=== PATIENT | female | born 1960 | race Caucasian/White ===

== ENCOUNTER 2017-02-07 09:13 | Outpatient (CLI) | payer OTHER ==
[~2017-02-07] VITALS: Ht 153.7 cm; Wt 63.9 kg
[2017-02-07 09:30] VITALS: BP 185/87; PULSE 61; RESP 16; Ht 153.7 cm; Wt 63.9 kg
[2017-02-07] MEDS ORDERED: ELBA1TAB PO (09:47)
[2017-02-07] MEDS ORDERED: PROP10TA6 PO (09:47)
[2017-02-07] MEDS ORDERED: SPIR25TA PO (09:47)
--- NOTE | 2017-02-07 11:35 | CONS ---
DATE OF CONSULTATION: 02/07/[facility] INITIAL OUTPATIENT CONSULTATION NOTE PLACE OF SERVICE: [facility] at [facility]. REFERRING PHYSICIAN: Loki Mae MD. Dear Dr. Mae: Thank you very much for the opportunity to participate in the care of this very pleasant lady and her wonderful family. REASON FOR CONSULTATION: Possible liver mass in the setting of cirrhosis. HISTORY OF PRESENT ILLNESS: The patient is a very pleasant 56-year-old lady with a few comorbidities as listed below, whom we were kindly asked to consult regarding management of possible liver mass. Patient was diagnosed with hepatitis C around summer when she initially developed edema and reported petechiae in the lower extremities. She was seen at the emergency department at [facility] and after several evaluations she was told that she had cirrhosis. An ultrasound done on 10/13/2015 demonstrated liver cirrhosis and a 13 cm spleen. In 01/2016 the patient's total bilirubin was 1.8, alkaline phosphatase 208, AST 207 and ALT 162, albumin 3.5 and INR was 1.1. She was therefore seen by you and has been under your excellent care since then. She has had a number of images done including an ultrasound of the liver around 07/2016 that showed an echogenic 1.8 cm lesion in the left hepatic lobe, not appreciated on prior CT scan done 01/17/2016. Spleen was read at 10.4 and there was no evidence of ascites. A CT scan with and without contrast was done on 08/08/2016 that demonstrated again cirrhotic changes of the liver, but no hepatic lesions. The spleen was measured at 12.6 on this study and there was evidence for portal hypertension manifested by varices. Interestingly , her alpha fetoprotein levels have changed over time. On 03/28/2016 alpha fetoprotein was 34.8. Subsequent to this, the following values where listed: 05/25/2016 at 53.4, 07/18/2016 at 44.6, 08/29/2016 at 43.5, 11/17/2016 at 23.3 and 12/15/2016 alpha fetoprotein was 12.2. The patient was worried about her clinical picture and she also had mentioned left-sided pain when she lays flat on her back. She was therefore referred to us for further evaluation. During her visit, the patient did not complain of any other major pains including no left-sided pain. Her only complaint was of occasional right-sided flank pain with some radiation to her back, which only happens infrequently. She also had 1 episode of blood in the stool over the last number of years and no other more common issues with bleeding. Her complete 14-point review of systems showed having to get up once at night to pee and occasional chest pains, occasional cough and phlegm. Some issues with gassiness and bloating and constipation and history of hemorrhoids, also difficulty with learning, which has been chronic. Otherwise, the rest of her review of systems were negative for any pertinent positives or pertinent negatives. No other major complaints during my visit. COMORBIDITIES: 1. History of cirrhosis diagnosed summer and being carefully followed with above-mentioned changes in her alpha fetoprotein levels and image findings that were discussed above. 2. Complication of cirrhosis including portal hypertension with platelet counts in the 60,000 to 70,000 range. 3. Hepatitis C infection, genotype 1A (05/25/2016). On 07/18/2016 HCV RNA was 1.7 million. The patient was started on 12 weeks of the Zepatier on 10/20/2016 and did not miss a dose. She finished this course. 4. Elevated alpha fetoprotein with resolution as mentioned above. 5. Hepatitis A immune. 6. Hypertension. 7. Cholelithiasis. Note that the patient had gallbladder wall thickening on her images from 07/2016, but no other visits to the hospital regarding this issue. 8. Gallbladder polyp: Small gallbladder polyp noted by ultrasound on 2016. 9. Hiatal hernia, CT scan 08/08/2016 and asymptomatic otherwise. 10. Hematuria. 11. Cyst of left kidney which appears to be stable and benign on ultrasound . 12. Renal calculi. 13. Hemorrhoids seen on colonoscopy 08/22/2016, thought to be internal and external. 14. Back pain, chronic and mainly when she does chores at home. 15. History of transfusion x1 in 1979. 16. Cystoscopy with bladder biopsy in 1986 in [place]. 17. Left breast mass removal 2005 at [facility] (further details are missing). 18. Right inguinal hernia repair in 2000 at [facility]. 19. BMI 27.0 from [facility] 02/07/2017. ALLERGIES: NO KNOWN DRUG ALLERGIES. MEDICATIONS: Carefully recorded in the electronic health record system and reviewed. SOCIAL HISTORY: The patient was born in [place] and she is currently . She has 7 living children. Currently is not employed. She does not report any smoking, drinking or intravenous drug use. REVIEW OF SYSTEMS: Other than the above-mentioned, there are no other pertinent positives or pertinent negatives in a complete 14-point review of systems. FAMILY HISTORY: History of CVA in patient's mother. History of hepatitis C virus infection in patient's sister. No other major medical, surgical or oncologic problems reported in the family. PHYSICAL EXAMINATION: GENERAL: The patient appears to be a very pleasant lady of descent, appearing stated age, sitting in a chair comfortably and in no acute distress. VITAL SIGNS: Appear to be normal with the exception of blood pressure 185/87. HEENT: Her head is normocephalic and atraumatic. Her extraocular muscles and hearing are grossly intact bilaterally and symmetrically. Her sclerae are nonicteric. Her oral cavity appears to be clear and her oral mucosa appeared to be pink and moist. She has fair dentition with some cavities. NECK: Supple. There is no lymphadenopathy or JVD. There is no submental, submandibular or supraclavicular lymphadenopathy. CHEST: Rises symmetrically with each breath and she is breathing comfortably. There are no audible wheezes, rales or rhonchi on the gross exam. HEART: Her pulses are palpable in the carotid region bilaterally and symmetrically. Also, palpable on the left wrist. Lower extremities contain no pitting edema around the ankles bilaterally and symmetrically. ABDOMEN: Soft, nontender and nondistended. There is no evidence of organomegaly, caput medusae, engorged subcutaneous veins or ascites. There are no peritoneal signs or guarding. SKIN: Appears to be pink and feels warm to touch. NEUROLOGIC: She is awake, alert and follows commands appropriately. LABORATORY VALUES: Latest are from 12/15/2016, where her INR was 1.1. Total bilirubin 1.4, AST 49, ALT 34, alkaline phosphatase 234, platelets 76. Alpha fetoprotein was 12.2, creatinine 0.6. IMAGING: Pertinent findings on the images were reviewed above. Note that I personally reviewed all the available images and I agree in general with their overall reported findings. ASSESSMENT AND PLAN: A very pleasant 56-year-old lady with hepatitis C cirrhosis and complicating factors of portal hypertension as evidenced by her thrombocytopenia as well as splenomegaly presenting with a picture that is not consistent with an obvious hepatocellular carcinoma process. Her alpha-fetoprotein has nicely come down over the last few months and the images that are available do not point to a discrete mass. The ultrasound findings may represent normal anatomy within the left lobe of the liver ( potentially ligament of Treitz region). Because the patient has risk factors, I have recommended that we reimage her. This would give us a nice comparison within 6 months of the previous images and I recommended that we do both right upper quadrant ultrasound as well as a liver-dedicated triple phase IV CT scan of the abdomen and pelvis. If there are no further lesions on these images, then we can have the patient return to a normal surveillance which is done through your expert care. If there are any issues that need to be discussed, I will ask the office to kindly make another appointment for the patient and her family to return to the office. I explained all of the above in detail with the patient and her son-in-law and answered all their questions to the best of my ability. The patient and family appeared to understand and agreed with plans. With above assessments, I have recommended the followin. Repeat CT scan of abdomen and pelvis with IV contrast liver dedicated. 2. Repeat right upper quadrant ultrasound with focused evaluation of the liver. 3. Continue monitoring of alpha fetoprotein. 4. Further management pending above as described in the previous paragraph. Thank you again for allowing us to participate in the care of this very pleasant lady and her wonderful family. If there are any questions, please feel free to contact me at [phone]. NATURE OF PRESENTING PROBLEM: Moderate risk. COMPLEXITY OF DECISION MAKING: Moderate complexity. Dictated By: CATHY LAMA/MARK Conf#: [id number] DID#: [id number] CC: Melissa Muro; physician assista; Loki Sandoval;*EndCC* MTDD
== END 2017-02-07 17:00 | disposition home or self-care (01) ==
LOC: HPC 09:13
PROVIDERS: ATTEND Transplant Surgery
DX: K76.9 Liver disease, unspecified (principal); I10 Essential (primary) hypertension; K74.60 Unspecified cirrhosis of liver; B19.20 Unspecified viral hepatitis C without hepatic coma; K44.9 Diaphragmatic hernia without obstruction or gangrene; Z87.442 Personal history of urinary calculi
CPT/HCPCS: G0463

== ENCOUNTER 2017-05-09 11:11 | Outpatient (CLI) | END 2017-05-09 15:30 | disposition home or self-care (01) ==